=== PATIENT | female | born 1985 | race Caucasian/White ===

== ENCOUNTER 2021-01-06 13:10 | Emergency (ER) | payer OTHER, SELFPAY ==
--- NOTE | ~2021-01-06 | CT_ITS ---
EXAMINATION: CT brain wo con EXAM DATE: 01/06/2021 14:01 INDICATION: Transient L hand and left side of tongue paresthesia. Ocular migraines. Left-sided headac hes. TECHNIQUE: Spiral CT of the head was performed without contrast. Axial, coronal and sagittal images were reviewed. The dose-length product (DLP) for this examination was 605.33 mGy-cm. The exposure w as tailored according to patient size, and iterative reconstruction (ASIR) was used as additional dos e reduction technique. Correlation is made to Brain MR 12/31/2017 FINDINGS: There is no acute intraparenchymal hemorrhage. No evidence of intraparenchymal brain mass lesion. No evidence of acute infarction. There is no mass effect or midline shift. The ventricles are normal in size. There are no extra-axial collections. There are no acute calvarial fractures. T he orbits are unremarkable. Soft tissue is unremarkable. The visualized sinuses and mastoid air patricia ls are well aerated. IMPRESSION: 1. No acute intracranial findings. Reviewed, dictated and finalized at location A.
[2021-01-06 13:16] VITALS: BP 156/86; PULSE 102; RESP 16; TEMP 37.1; O2SAT 99
--- NOTE | 2021-01-06 13:21 | ECG_ITS ---
Measurements Intervals [place] Rate: 88 P: 52 MD: 133 QRS: 18 QRSD: 86 T: -12 QT: 338 QTc: 411 Interpretive Statements SINUS RHYTHM LEFT ATRIAL ENLARGEMENT BORDERLINE ST-T WAVE ABNORMALITY- ANT/INF LEADS BASELINE ARTIFACT- II, III, AVL, AVF BORDERLINE ECG Electronically Signed On 01-06-2021 13:51:37 CDT by Dickson Hutchinson D.O.
[2021-01-06 14:05] LABS: Basophils Absolute Auto 0.1 K/mm3 (0.0-0.1); Basophils Percent Auto 0.6 % (0.2-1.2); Eosinophils Absolute Auto 0.2 K/mm3 (0-0.3); Eosinophils Percent Auto 1.7 % (0-4.4); Hematocrit 41.6 % (37.0-47.0); Hemoglobin 13.6 g/dL (12.0-15.0); Immature Granulocyte Absolute 0.03 K/mm3 (0.00-0.031); Immature Granulocyte Percent A 0.3 % (0-0.5); Lymphocytes Percent Auto 33.3 % (18.3-44.2); Mean Corpuscular HGB Conc 32.7 g/dl (32-36); Mean Corpuscular Hemoglobin 27.9 pg (26-34); Mean Corpuscular Volume 85.2 fl (80-100); Mean Platelet Volume 9.7 fl (7.4-10.4); Monocytes Absolute Auto 0.7 K/mm3 (0.1-0.6); Monocytes Percent Auto 7.4 % (2.6-8.5); Neutrophils Absolute Auto 5.1 K/mm3 (1.3-6.7); Neutrophils Percent Auto 56.7 % (45.5-73.1); Platelet Count Result 358 k/mm3 (150-375); Red Blood Count 4.88 M/mm3 (4.2-5.4)
[2021-01-06 14:22] LABS: Anion Gap 15 mmol/L (8-16); Blood Urea Nitrogen 11 mg/dL (7-17); Carbon Dioxide 21 mmol/L (22-30); Chloride 102 mmol/L (98-107); Estimated CRCL calculation 90 ml/min; Estimated Glomerular Filt Rate > 60; Glucose 126 mg/dL (65-110); Potassium 3.7 mmol/L (3.4-5.0); Sodium 138 mmol/L (137-145)
[2021-01-06 16:03] VITALS: BP 120/82; PULSE 108; O2SAT 96
[2021-01-06 17:57] VITALS: BP 133/84; PULSE 79; RESP 16; O2SAT 98
--- NOTE | 2021-01-06 18:11 | ED.NEUROSD ---
HPI - Neuro Symptoms/Deficit General Chief Complaint: Neuro Symptoms/Deficit Stated Complaint: LEFT HAND , LEFT TONGUE NUMB , AT 1200, SOB Time Seen by Provider: 01/06/21 17:59 History of Present Illness HPI Narrative: 35 yo female w/ h/o migraine presents with numbness. While she was eating lunch today she noted numbness to the left hand and tongue. This last about 5 minuutes before it resolved. She thinks she may have had a migraine aoura about this time. She does have a mild headache at this time. She has a h/o migraines, but these symptoms are new. No other medical history. Related Data Allergies Allergy/AdvReac Type Severity Reaction Status Date / Time sulfamethizole Allergy Unknown Unknown Verified 12/29/17 09:06 sulfamethoxazole Allergy Unknown Verified 07/31/13 19:14 trimethoprim Allergy Unknown Unknown Verified 12/29/17 09:06 Review of Systems Review of Systems: All systems reviewed & are unremarkable except as noted in HPI and below Constitutional: Constitutional: Denies chills, Denies fever(s) and Denies weakness Eyes: Eyes: Reports no additional eye complaints Cardiovascular: Cardiovascular: Denies chest pain Respiratory: Respiratory: Denies dyspnea Gastrointestinal: Gastrointestinal: Denies nausea Genitourinary: Genitourinary: Reports no additional female genitourinary complaints Musculoskeletal: Musculoskeletal: Denies back pain Neurologic: Denies confusion, Denies dizziness and Denies weakness [facility] Social History Social History Smoking status: Never smoker Alcohol intake: current Exam Const: General: healthy appearing, no acute distress and alert Orientation/consciousness: patient oriented x3 HENMT: Head: normal to inspection Neck: Neck: normal visual inspection Chest: Chest palpation & inspection: no tenderness Resp: Effort & Inspection: normal respiratory effort Auscultation: clear to auscultation bilaterally, no rales, no rhonchi and no wheezes Cardio: Jugular venous distension: no JVD Rate: regular rate Rhythm: regular rhythm Heart sounds: no murmurs GI: Inspection: non-distended GI Palp: Yes Soft to palpation and No Tenderness to palpation present (GI) Skin: General skin exam: normal color Neuro: General: patient oriented x3 and moves all extremities Cranial nerves: Yes CN's II-XII intact bilaterally, Yes Facial sensation intact/muscles of mastication intact, Yes Equal, round and reactive pupils present, Yes facial symmetry and Yes Midline tongue present Cognition (Neuro): normal cognition Speech: normal speech Gait exam (Neuro): Normal gait present Motor exam (neuro): 5/5 motor strength present throughout Sensory Exam: normal sensation Coordination: [id number] test normal and [id number] test normal Extrem: General: normal to inspection and no edema Psych: Appearance: grossly normal and well kempt Mental Status: mental status grossly normal Affect: normal affect Course Vital Signs Vital signs: Vital Signs Temperature 37.1 C 01/06/21 13:16 Pulse Rate 102 H 01/06/21 13:16 Respiratory Rate 16 01/06/21 13:16 Blood Pressure 156/86 H 01/06/21 13:16 Pulse Oximetry 99 01/06/21 13:16 Temperature 37.1 C 01/06/21 13:16 Pulse Rate 85 01/06/21 18:39 Respiratory Rate 14 01/06/21 18:39 Blood Pressure 118/78 01/06/21 18:39 Pulse Oximetry 99 01/06/21 18:39 MDM - Neuro Symptoms/Deficit MDM Narrative Medical decision making narrative: Symptoms are most likely migraine related. Con not completely rule out TIA, but this is very unlikely. She young with no risk factors or family history. Medical Records Attestation: I reviewed the patient's medical records. Lab Data Attestation: I reviewed the patient's lab results. Result diagrams: 01/06/21 13:50 01/06/21 13:50 Labs: Lab Results 01/06/21 01/06/21 Range/Units 13:50 13:50 WBC 9.0 (4.5-10.0)
[2021-01-06 18:39] VITALS: BP 118/78; PULSE 85; RESP 14; O2SAT 99
== END 2021-01-06 18:50 | disposition home or self-care (01) ==
PROVIDERS: Family Medicine; Emergency Provider Emergency Medicine; PCP Internal Medicine
DX: G43.909 Migraine, unspecified, not intractable, without status migrainosus (principal); R94.31 Abnormal electrocardiogram [ECG] [EKG]
CPT/HCPCS: 36415; 70450; 80048; 85025; 93005; 99284

== ENCOUNTER 2023-12-01 14:21 | Outpatient (CLI) | payer OTHER, SELFPAY ==
--- NOTE | ~2023-12-01 | US_ITS ---
EXAMINATION:US venous doppler LE RT INDICATION:Right lower extremity pain TECHNIQUE: Multiple grayscale, color flow and Doppler images of the right lower extremity deep venous systems were obtained and reviewed. COMPARISON:No prior studies for comparison. FINDINGS: The common femoral, superficial femoral and popliteal veins demonstrate normal respiratory variation, augmentation and compressibility. Color flow is also seen within the posterior tibial, pe roneal, greater saphenous and profunda veins. IMPRESSION: 1: No lower extremity deep venous thrombosis. Reviewed, dictated and finalized at location B.
== END 2023-12-01 14:22 ==
LOC: GOSHIMG 14:22
PROVIDERS: PCP Nurse Practitioner Family; Visit Provider Nurse Practitioner Family
DX: M79.604 Pain in right leg (principal)
CPT/HCPCS: 93971